=== PATIENT | female | born 1975 | race Caucasian/White ===

== ENCOUNTER 2019-12-04 13:57 | Emergency (ER) | payer MEDICAID ==
[~2019-12-04] VITALS: Ht 165.1 cm; Wt 68.2 kg
[2019-12-04 16:00] VITALS: BP 135/76
[2019-12-04] MEDS ORDERED: IBUPROFEN 800 MG TABLET PO ONE (16:00)
[2019-12-04] MEDS ORDERED: MECLIZINE HCL 25 MG TABLET PO ONE (16:00)
== END 2019-12-04 16:17 | disposition home or self-care (01) ==
LOC: EMS 14:13
DX: T16.2XXA Foreign body in left ear, initial encounter (principal); W45.8XXA Other foreign body or object entering through skin, initial encounter; Y93.89 Activity, other specified; Y92.89 Other specified places as the place of occurrence of the external cause; Y99.8 Other external cause status

== ENCOUNTER 2023-05-10 15:45 | Emergency (ER) | payer MEDICAID ==
[~2023-05-10] VITALS: Ht 167.6 cm; Wt 75.0 kg
[2023-05-10 15:49] VITALS: TEMP 98.4
[2023-05-10] MEDS ORDERED: CORTSUSP AS (16:36)
[2023-05-10] MEDS ORDERED: CEPH-558 PO (16:36)
[2023-05-10] MEDS ORDERED: ACET-66 PO (16:36)
[2023-05-10 16:49] VITALS: BP 132/81; PULSE 83; RESP 17
== END 2023-05-10 16:51 | disposition home or self-care (01) ==
LOC: EMS 15:46
DX: H60.502 Unspecified acute noninfective otitis externa, left ear (principal); H66.92 Otitis media, unspecified, left ear
CPT/HCPCS: 99283; Z7502